=== PATIENT | female | born 1985 ===

== ENCOUNTER 2021-05-08 17:09 | Emergency (ER) | payer MEDICAID ==
[~2021-05-08] VITALS: Ht 170.2 cm; Wt 99.8 kg
[2021-05-08 20:26] VITALS: BP 133/53
== END 2021-05-08 20:53 | disposition home or self-care (01) ==
LOC: ER 17:09
DX: S60.453A Superficial foreign body of left middle finger, initial encounter (principal); E66.9 Obesity, unspecified; Z68.34 Body mass index [BMI] 34.0-34.9, adult; Z88.0 Allergy status to penicillin; W45.8XXA Other foreign body or object entering through skin, initial encounter; Y93.89 Activity, other specified; Y92.89 Other specified places as the place of occurrence of the external cause; Y99.8 Other external cause status